=== PATIENT | female | born 1980 | race Caucasian/White ===

== ENCOUNTER 2017-10-16 17:32 | Emergency (ER) | payer OTHER ==
[~2017-10-16] VITALS: Ht 177.8 cm; Wt 95.2 kg
[2017-10-16] MEDS ORDERED: BENZ100A PO (18:26)
[2017-10-16] MEDS ORDERED: SPACE CHAMBER1 EACH PO (18:26)
[2017-10-16] MEDS ORDERED: METPRE4DP PO (18:26)
[2017-10-16] MEDS ORDERED: ALBU90OI INH (18:26)
[2017-10-16] MEDS ORDERED: ROBITUSSIN COU237 ML PO (18:26)
== END 2017-10-16 18:40 | disposition home or self-care (01) ==
LOC: ER 17:32
DX: J45.909 Unspecified asthma, uncomplicated (principal); F17.200 Nicotine dependence, unspecified, uncomplicated
CPT/HCPCS: 71046; 94640; 99283

== ENCOUNTER 2018-01-07 09:21 | Emergency (ER) | payer OTHER ==
[~2018-01-07] VITALS: Ht 180.3 cm; Wt 104.3 kg
[~2018-01-07 09:21] MED LIST: ALBU90OI INH; BENZ100A PO; IBUP800 PO; METPRE4DP PO; Pepcid40 MG PO; ROBITUSSIN COU237 ML PO; SPACE CHAMBER1 EACH PO
[2018-01-07] MEDS ORDERED: Augmentin 875-1 EACH PO (12:06)
== END 2018-01-07 12:28 | disposition home or self-care (01) ==
LOC: ER 09:21
DX: J02.9 Acute pharyngitis, unspecified (principal); I88.9 Nonspecific lymphadenitis, unspecified; F17.200 Nicotine dependence, unspecified, uncomplicated; Z79.899 Other long term (current) drug therapy
CPT/HCPCS: 70491; 99283-25; J1100; Q9967

== ENCOUNTER → 2018-05-25 | Outpatient (CLI) | payer OTHER ==
[~2018-05-25] MED LIST changes: +ACET500 PO; +ALBU90OI; +Augmentin 875-1 EACH PO; +BUPRENORPHINE HC8 MG PO; +DIPH50 PO; +FURO40 PO; +NICO21TP; +POTA10T PO
[2018-05-25 15:53] LABS: Alanine Aminotransfer (ALT/SGP 89 U/L (12-78); Albumin, Blood 3.3 g/dL (3.4-5.0); Alk Phos 99 U/L (40-126); Anion Gap 12 mmol/L (6-16); Aspartate Aminotrans (AST/SGOT 51 U/L (12-37); Bilirubin, Total 0.1 mg/dL (0.1-1.0); Blood Urea Nitrogen 13 mg/dL (8-24); Bun/Creatinine Ratio 21.7 (12.0-20.0); CO2, Blood 25 mmol/L (21-32); Calcium, Blood 9.1 mg/dL (8.5-10.1); Chloride, Blood 105 mmol/L (98-108); Globulin, Blood 3.2 g/dL (2.2-4.0); Glomerular Filtration Rate >60 (60-); Glucose, Blood 116 mg/dL (70-99); Potassium, Blood 4.5 mmol/L (3.5-5.5); Sodium, Blood 142 mmol/L (136-145); Total Protein, Blood 6.5 g/dL (6.4-8.2)
== END | disposition home or self-care (01) ==
LOC: LAB EV 15:30 → LAB SHORT 15:30
PROVIDERS: Physician Assistant
DX: R60.9 Edema, unspecified (principal)
CPT/HCPCS: 80053

== ENCOUNTER 2018-06-07 20:40 | Emergency (ER) | payer OTHER ==
[~2018-06-07] VITALS: Ht 177.8 cm; Wt 122.5 kg
[2018-06-07] MEDS ORDERED: Albuterol2.5 MG/0.5 INH (21:30)
[2018-06-07] MEDS ORDERED: PRED20 PO (21:30)
== END 2018-06-07 21:37 | disposition home or self-care (01) ==
LOC: ER 20:40
DX: J40 Bronchitis, not specified as acute or chronic (principal); Z87.891 Personal history of nicotine dependence; Z79.51 Long term (current) use of inhaled steroids; Z79.899 Other long term (current) drug therapy
CPT/HCPCS: 94640; 99283-25